=== PATIENT | female | born 1950 | race Caucasian/White ===

== ENCOUNTER → 2016-08-05 | Outpatient (CLI) | payer BC ==
--- NOTE | 2016-08-06 09:22 | DX ---
Thoracic spine, 2 views HISTORY: Breast cancer. Abnormal nuclear medicine bone scan. COMPARISON: Today's nuclear medicine bone scan. FINDING: Moderate lower thoracic levoscoliosis and compensatory lumbar dextroscoliosis. Multilevel moderate degenerative disk disease at most levels in the thoracic spine, more prominent in the mid thoracic region with disk space narrowing and osteophytes. Severe degenerative disk disease at T11-12 with severe disk space narrowing, endplate sclerosis and osteophytes, which corresponds to the nuclear medicine bone scan finding. IMPRESSION: 1. T11-12 severe degenerative disk disease with minimal retrolisthesis. 2. Moderate midthoracic multilevel degenerative disk disease with disk space narrowing and osteophyte s. 3. No definite destructive osseous lesions. 4. If there is persistent pain consider MRI imaging
--- NOTE | 2016-08-06 09:22 | DX ---
Pelvis at 1352 hours HISTORY: Breast cancer, abnormal bone scan. COMPARISON: Today's nuclear medicine bone scan FINDINGS: Increased sclerotic changes of the bilateral sacroiliac joints suggesting mild sacroiliitis . No definite destructive osseous lesions of the sacrum, although overlying bowel gas and stool limit s the study. The rest of the pelvic bones appear intact. Mild osteoarthritis right hip with subchondr al cystic erosions and acetabular osteophytes. IMPRESSION: 1. Mild bilateral sacroiliac sclerotic changes. 2. Moderate osteoarthritis right hip
--- NOTE | 2016-08-06 09:22 | NM ---
Nuclear Medicine Whole Body Bone Scan at 1040 hours Clinical Indications: Right breast cancer, M81.0, D0511, sclerotic left 9th rib on recent CT. Technique: 20.9 mCi technetium 99m MDP were injected intravenously. Delayed images of the skeleton were obtained in anterior and posterior projections. Comparison Studies: Plain films of the thoracic spine and pelvis from today. CT abdomen and pelvis from July 07, 2016. Findings: Lower thoracic levoscoliosis and lumbar dextroscoliosis. Uptake involving the T11-12 leve l, which corresponds to severe degenerative disk disease on the plain films of the thoracic spine. U ptake also involving mid thoracic spine also likely representing moderate degenerative disk disease o n the plain films. Uptake in the region of the right sacroiliac joint, probably degenerative on the plain films, without definite destructive osseous lesions. Mild uptake involving the anterior aspect of the left 9th rib, which corresponds to the CT finding an d is nonspecific. Degenerative uptake bilateral carpal bones. Impressions 1. Left 9th rib anterior subtle increased activity, which corresponds to the CT finding and is nonsp ecific. This may represent a subacute fracture or less likely solitary osseous metastasis. 2. Multiple mid and lower thoracic uptake likely representing multilevel severe degenerative disk di sease. Consider additional imaging with MRI of the thoracic spine. 3. Uptake involving the right sacroiliac joint region, without definite plain film correlation, poss ibly degenerative. E:amm
== END ==
LOC: FIMAGING 09:09
PROVIDERS: ATTEND Internal Medicine Hematology & Oncology
DX: M85.88 Other specified disorders of bone density and structure, other site (principal); Z85.3 Personal history of malignant neoplasm of breast; M16.11 Unilateral primary osteoarthritis, right hip; M51.34 Other intervertebral disc degeneration, thoracic region
CPT/HCPCS: 72070; 72170; 78306; A9503

== ENCOUNTER → 2016-12-30 | Outpatient (CLI) | payer BC | LOC: FIMAGING 11:38 | PROVIDERS: ATTEND Family Medicine | DX: Z12.31 Encounter for screening mammogram for malignant neoplasm of breast (principal); Z85.3 Personal history of malignant neoplasm of breast; Z92.3 Personal history of irradiation | CPT/HCPCS: G0202 ==

== ENCOUNTER → 2017-02-20 | Outpatient (CLI) | payer OTHER, MEDICARE | LOC: FIMAGING 12:12 | PROVIDERS: ATTEND Family Medicine | DX: M79.672 Pain in left foot (principal); S09.90XA Unspecified injury of head, initial encounter ==

== ENCOUNTER → 2017-07-07 | Outpatient (CLI) | payer OTHER, MEDICARE | LOC: BMCIMAGING 12:31 | PROVIDERS: ATTEND Family Medicine | DX: M19.042 Primary osteoarthritis, left hand (principal); M25.561 Pain in right knee | CPT/HCPCS: 82607-90 ==

== ENCOUNTER → 2017-08-17 | Outpatient (CLI) | payer OTHER, MEDICARE | LOC: BHLMT 09:15 | PROVIDERS: ATTEND Internal Medicine | DX: I34.1 Nonrheumatic mitral (valve) prolapse (principal) | CPT/HCPCS: 93306-PO ==

== ENCOUNTER → 2017-12-25 | Outpatient (CLI) | payer OTHER, MEDICARE | LOC: FIMAGING 13:32 | PROVIDERS: ATTEND Family Medicine | DX: Z12.31 Encounter for screening mammogram for malignant neoplasm of breast (principal); Z85.3 Personal history of malignant neoplasm of breast ==

== ENCOUNTER → 2018-01-07 | Outpatient (CLI) | payer OTHER, MEDICARE | LOC: FIMAGING 16:42 → FLAB 16:42 → EDSTATUS 16:44 | PROVIDERS: ATTEND Family Medicine | DX: M41.85 Other forms of scoliosis, thoracolumbar region (principal) ==

== ENCOUNTER → 2018-01-19 | Outpatient (CLI) | payer OTHER, MEDICARE | LOC: FIMAGING 07:55 | PROVIDERS: ATTEND Family Medicine | DX: M51.36 Other intervertebral disc degeneration, lumbar region (principal); M47.896 Other spondylosis, lumbar region; M41.86 Other forms of scoliosis, lumbar region ==

== ENCOUNTER → 2018-07-02 | Outpatient (CLI) | payer OTHER, MEDICARE | LOC: FIMAGING 09:27 | PROVIDERS: ATTEND Obstetrics & Gynecology | DX: Z13.89 Encounter for screening for other disorder (principal) ==

== ENCOUNTER → 2018-07-15 | Outpatient (CLI) | payer OTHER, MEDICARE ==
[~2018-07-15] MED LIST: GADOBUTROL 10 ML VIAL IVP ONE
== END ==
LOC: FIMAGING 12:35
PROVIDERS: ATTEND Internal Medicine Hematology & Oncology
DX: Z12.39 Encounter for other screening for malignant neoplasm of breast (principal); Z86.000 Personal history of in-situ neoplasm of breast; Z17.1 Estrogen receptor negative status [ER-]
CPT/HCPCS: A9585; C8908; 82565-PO

== ENCOUNTER → 2018-08-11 | Outpatient (CLI) | payer OTHER, MEDICARE | LOC: BHFA 15:30 | PROVIDERS: ATTEND Internal Medicine Cardiovascular Disease | DX: I34.0 Nonrheumatic mitral (valve) insufficiency (principal) ==

== ENCOUNTER → 2018-09-02 | Outpatient (CLI) | payer OTHER, MEDICARE | LOC: FIMAGING 07:22 ==

== ENCOUNTER → 2018-09-03 | Outpatient (CLI) | payer OTHER, MEDICARE | LOC: FIMAGING 07:12 | PROVIDERS: ATTEND Obstetrics & Gynecology | DX: R10.11 Right upper quadrant pain (principal) ==

== ENCOUNTER 2018-10-15 07:37 | Day surgery (SDC) | payer OTHER, MEDICARE ==
[2018-10-15] MEDS ORDERED: NS 500 ML IV ONE (07:40)
[2018-10-15] MEDS ORDERED: fentaNYL 100 MCG/2 ML INJ IVP ONE (07:40)
[2018-10-15] MEDS ORDERED: MIDAZOLAM 2 MG/2 ML VIAL IVP ONE (07:40)
[2018-10-15] MEDS ORDERED: BENZOCAINE UNIT DOSE SPRAY HURRICAINE MM ONE (07:40)
[2018-10-15] MEDS ORDERED: fentaNYL 100 MCG/2 ML INJ ONE (08:51)
[2018-10-15] MEDS ORDERED: MIDAZOLAM 2 MG/2 ML VIAL ONE (08:51)
--- NOTE | 2018-10-15 08:53 | PDANEPAE ---
ANE History of Present Illness mitral regurgitation / mitral valve prolapse ANE Past Medical History - Cardiovascular History Hx Hypertension: No Hx Arrhythmias: No Hx Chest Pain: No Hx Coronary Artery / Peripheral Vascular Disease: No Hx CHF / Valvular Disease: Yes Hx Palpitations: No - Pulmonary History Hx COPD: No Hx Asthma/Reactive Airway Disease: No Hx Recent Upper Respiratory Infection: No Hx Oxygen in Use at Home: No Hx Sleep Apnea: No - Neurologic History Hx Cerebrovascular Accident: No Hx Seizures: No Hx Dementia: No - Endocrine History Hx Diabetes: No Hypothyroid: No Hyperthyroid: No Obesity: no - Renal History Hx Renal Disorders: No - Liver History Hx Hepatic Disorders: No - Neurological & Psychiatric Hx Neurological / Psychiatric History Comment: +migraines. + s/p ACDF ANE Review of Systems Review of systems is: negative Review of Systems: - Exercise capacity Exercise capacity: >=4 METS ANE Patient History - Allergies Allergies/Adverse Reactions: acetaminophen [From Tylenol] Allergy (Severe, Verified 11/15/12 15:34) SEVERE ABD CRAMPING amoxicillin [Amoxicillin] Allergy (Severe, Verified 11/14/09 16:33) SEVERE ABD CRAMPS adhesive tape Allergy (Verified 10/15/18 07:45) Other-Enter Comments metaxalone [From Skelaxin] Allergy (Verified 10/15/18 07:44) Rash nitrofurantoin [From Macrobid] Allergy (Verified 10/15/18 07:44) HORRIBLE H/A nitrofurantoin macrocrystalline [From Macrobid] Allergy (Verified 10/15/18 07:44 ) HORRIBLE H/A - Home Medications Home medications: home medication list seen and reviewed Home Medications: Aspirin 81 mg PO DAILY 10/15/18 [Last Taken 10/14/18 10:30] Atorvastatin Calcium 20 mg PO HS 10/15/18 [Last Taken 10/14/18 22:00] Bystolic 2.5 mg PO DAILY 10/15/18 [Last Taken 10/14/18 22:00] Calcium 500 mg PO DAILY 10/15/18 [Last Taken Unknown] Diazepam 2.5 mg pe PO HS PRN 10/15/18 [Last Taken 10/14/18 22:00] Estradiol 1 g TP MWF 10/15/18 [Last Taken 10/13/18 10:00] Flonase Nasal [place] [facility] DAILY 10/15/18 [Last Taken 10/15/18 03:00] Lexapro 20 mg PO DAILY 10/15/18 [Last Taken 10/14/18 10:30] Melatonin 3 mg PO HS 10/15/18 [Last Taken 10/14/18 22:00] Meloxicam 15 mg PO DAILY 10/15/18 [Last Taken 10/14/18 10:30] Reclast IV 10/15/18 [Last Taken Unknown] SUMAtriptan 5 mg IN PRN 10/15/18 [Last Taken Unknown] - NPO status NPO Status: no food or drink >8 hours - Anes Hx Anes Hx: no prior problems - Smoking Hx Smoking Status: Former smoker ANE Labs/Vital Signs - Vital Signs Height: 165 cm Weight: 58.1 kg ANE Physical Exam - Airway Neck exam: FROM Mallampati Score: Class 2 Mouth exam: normal dental/mouth exam - Pulmonary Pulmonary: no respiratory distress - Cardiovascular Cardiovascular: regular rate and rhythym - ASA Status ASA Status: II ANE Anesthesia Plan Anesthesia Plan: GA with mask
[2018-10-15] MEDS ORDERED: PROPOFOL 200 MG/20 ML VIAL ONE (08:58)
--- NOTE | 2018-10-15 09:00 | PDHPUP ---
History & Physical Update H&P update statement: This history and physical update is based on an assessment of the patient which was completed after admission or registration (within 24 hours), but prior to the surgery/procedure. H&P update: H&P reviewed & patient examined, no change in patient's condition since H&P completed
[2018-10-15] MEDS ORDERED: NALOXONE HCL 0.4 MG/ML INJ IVP PRN (09:26)
--- NOTE | 2018-10-15 09:29 | POSTANESTH ---
Post Anesthetic Evaluation Cardiovascular Status: Normal, Stable Respiratory Status: Normal, Stable Level of Consciousness/Mental Status: Can Participate in Eval Pain Control: Adequate, Prn Tx Ordered Nausea/Vomiting Control: Adequate, Prn Tx Ordered Complications Possibly Related to Anesthesia: None Noted
== END 2018-10-15 11:14 | disposition home or self-care (01) ==
LOC: FCATH 07:37
PROVIDERS: ATTEND Internal Medicine Cardiovascular Disease
PROC: B246ZZ4 Ultrasonography of Right and Left Heart, Transesophageal (ICD-10-PCS; principal; 2018-10-15)
DX: I34.0 Nonrheumatic mitral (valve) insufficiency (principal); I34.1 Nonrheumatic mitral (valve) prolapse; Z87.891 Personal history of nicotine dependence; Z98.1 Arthrodesis status
CPT/HCPCS: J2250; J2704; J3010

== ENCOUNTER → 2018-12-29 | Outpatient (CLI) | payer OTHER, MEDICARE | LOC: FIMAGING 14:37 ==